=== PATIENT | male | born 1985 | race Caucasian/White ===

== ENCOUNTER 2016-11-06 08:07 | Emergency (ER) | payer BC, MEDICAID ==
[~2016-11-06] VITALS: Ht 180.3 cm; Wt 56.5 kg
[~2016-11-06 08:07] MED LIST: IBUP-1542 PO
[2016-11-06 08:10] VITALS: Ht 180.3 cm; Wt 56.5 kg
[2016-11-06] MEDS ORDERED: ONDA4TAB14 PO (09:35)
--- NOTE | 2016-11-06 09:58 | ERD ---
ER Documentation Chief Complaint Date/Time DATE: 11/06/16 TIME: 09:52 Chief Complaint diarrhea x 3 days, noticed bright red blood yesterday. HPI This patient is a 31-year-old male with no significant medical history presenting to the emergency department with complaints of nausea, vomiting, and diarrhea intermittently for the past 3 days. He states his symptoms are improving overall. Yesterday he had around 7 episodes of diarrhea and he noticed a mild amount of bright red blood in the toilet. He also stated his stool was a dark black color, but this may be attributed to him taking Pepto- Bismol. Vomiting is currently resolved. Symptoms are improved with Pepto- Bismol. He states he did eat a burrito which had been sitting out of the refrigerator for quite some time and then began experiencing symptoms soon after this event. He denies fevers, chills, recent travel, dizziness, chest pain, shortness of breath, and other symptoms currently. ROS All systems reviewed and are negative except as per history of present illness. Medications Home Meds Active Scripts Ondansetron (Ondansetron Odt) 4 Mg Tab.rapdis, 4 MG PO Q6H Y for NAUSEA AND/OR VOMITING, #10 TAB Prov:JOANNA DALY PA-C 11/06/16 Ibuprofen* (Ibuprofen*) 600 Mg Tablet, 600 MG PO Q6, #30 TAB Prov:JONATHAN ESPAÑA PA-C 09/26/14 Allergies Allergies: Coded Allergies: No Known Allergy (Unverified , 11/06/16) PMhx/Soc Medical and Surgical Hx: pt denies Medical Hx, pt denies Surgical Hx History of Surgery: No Anesthesia Reaction: No Hx Neurological Disorder: No Hx Respiratory Disorders: No Hx Cardiac Disorders: No Hx Psychiatric Problems: No Hx Miscellaneous Medical Probl: No Hx Alcohol Use: No (1 beer/2 days) Hx Substance Use: No Hx Tobacco Use: Yes (1 cig/ day) Smoking Status: Current every day smoker Physical Exam Vitals Vital Signs Date Time Temp Pulse Resp B/P Pulse Ox O2 Delivery O2 Flow Rate FiO2 11/06/16 08:10 97.8 69 18 147/86 100 Physical Exam Const: Nontoxic, well-appearing male in no acute distress. Head: Atraumatic Eyes: Normal Conjunctiva ENT: Normal External Ears, Nose and Mouth. Neck: Full range of motion..~ No meningismus. Resp: Clear to auscultation bilaterally Cardio: Regular rate and rhythm, no murmurs Abd: Soft, non tender, non distended. Normal bowel sounds. No rebound tenderness or guarding. No McBurney's point tenderness. RECTAL: Verbal Consent Obtained Sphincter tone is normal. No external hemorrhoids seen. No evidence of anal fissure or internal hemorrhoids. Non- tender to digital rectal palpation. No masses palpated. Guaiac negative. Control is positive. Skin: No petechiae or rashes Back: No midline or flank tenderness Ext: No cyanosis, or edema Neur: Awake and alert Psych: Normal Mood and Affect Results 24 hrs Laboratory Tests Test 11/06/16 08:30 Stool Occult Blood NEGATIVE Procedures/MDM 31-year-old male presents for nausea, vomiting, and diarrhea. The abdomen is soft, nondistended, with normoactive bowel sounds. Rectal exam is negative for any findings. No signs of internal or external hemorrhoids, anal fissures, or rectal prolapse. Occult blood test was sent to the lab and was negative. I have low suspicion for acute abdomen or other emergent conditions. The patient did not show signs of significant dehydration. The patient is stable for outpatient management with a prescription for Zofran. He was advised to have close follow-up with his primary care physician. Strict ER return precautions were discussed and the patient demonstrated good understanding. Departure Diagnosis: Primary Impression: Nausea vomiting and diarrhea Condition: Fair Patient Instructions: Vomiting And Diarrhea, Nonspecific (Adult) Referrals: [facility] YOU HAVE RECEIVED A MEDICAL SCREENING EXAM AND THE RESULTS INDICATE THAT YOU DO NOT HAVE A CONDITION THAT REQUIRES URGENT TREATMENT IN THE EMERGENCY DEPARTMENT. FURTHER EVALUATION AND TREATMENT OF YOUR CONDITION CAN WAIT UNTIL YOU ARE SEEN IN YOUR DOCTORS OFFICE WITHIN THE NEXT 1-2 DAYS. IT IS YOUR RESPONSIBILITY TO MAKE AN APPOINTMENT FOR FOLOW-UP CARE. IF YOU HAVE A PRIMARY DOCTOR --you should call your primary doctor and schedule an appointment IF YOU DO NOT HAVE A PRIMARY DOCTOR YOU CAN CALL OUR PHYSICIAN REFERRAL HOTLINE AT IF YOU CAN NOT AFFORD TO SEE A PHYSICIAN YOU CAN CHOSE FROM THE FOLLOWING [facility] [address]. [facility] [address] [facility] [address] [facility] [address] [facility] [address] [facility]. [facility] [address] Additional Instructions: Follow up with your PCP within the next 1-3 days for a repeat evaluation. If you require a referral to a specialist, your Primary Care Provider may be able to provide this for you. In most patient cases, a referral is not required. If you have further questions regarding this matter, please ask your Primary Care Provider. Return the the emergency department immediately if symptoms worsen or change. If you have any questions regarding medications, ask your pharmacist or us before you leave. If any adverse reactions, occur while taking your medications, discontinue the treatment and return to the emergency department immediately. If any new or worsening symptoms, uncontrolled fevers, or other unexplained symptoms occur, return to the emergency department immediately. Take your medications as directed, and complete the entire course of treatment. JOANNA DALY PA-C Nov 06, 2016 09:58
== END 2016-11-06 17:59 | disposition home or self-care (01) ==
LOC: FTE 08:07
DX: R19.7 Diarrhea, unspecified (principal); R11.2 Nausea with vomiting, unspecified; F17.210 Nicotine dependence, cigarettes, uncomplicated
CPT/HCPCS: 82270; Z7502; 99284